=== PATIENT | male | born 1990 | race Caucasian/White ===

== ENCOUNTER 2017-03-21 12:11 | Emergency (ER) | payer OTHER ==
[2017-03-21 12:18] VITALS: BP 152/105; PULSE 72; RESP 16; TEMP 97.9; O2SAT 95
--- NOTE | 2017-03-21 13:51 | EDPHY ---
H & P Time Seen by Provider: 03/21/17 13:20 HPI/ROS: CHIEF COMPLAINT: Acute right knee pain HISTORY OF PRESENT ILLNESS: 26-year-old male arrives via private vehicle complaining of acute right medial knee pain after he was walking down a stair and the stair broke he fell through the stair impacting his right medial knee. Complaint acute right medial knee pain which occurred earlier today. He is able to bear weight. Reproducible pain with palpation range of motion. No gross instability. PRIMARY CARE PROVIDER: REVIEW OF SYSTEMS: A ten point review of systems was performed and is negative with the exception of the items mentioned in the HPI PHYSICAL EXAM (Prior to examination, patient consented to physical exam, hands were washed and my usual and customary physical exam procedures followed) 1) GENERAL: Well-developed, well-nourished, alert and oriented. Appears to be in no acute distress. 2) HEAD: Normocephalic 3) HEENT: Pupils equal, round, reactive to light bilaterally. 4) LUNGS: Breathing comfortably. 5) MUSCULOSKELETAL: Exam of the right knee shows no visible signs of trauma. Intact skin. No laceration. No abrasion. He is tender to palpation medial aspect. Also has reproducible pain with range of motion. . Compartments are soft. 6) SKIN: intact 7) VASCULAR: DP,PT pulses and cap refill present and brisk distally DIFFERENTIAL DIAGNOSIS: in no particular order including but not limited to fracture, sprain, compartment syndrome, septic arthritis, DVT Procedure: Crutches indications for crutch use discussed with patient. Patient fitted for crutches by ER staff. Observed ambulating with crutches. I think the patient has the capacity to safely use crutches. Usual and customary crutch walking precautions provided Procedure: Splint An Radames bandage splint was applied by ER microbiology technician as the patient did not fit in a knee immobilizer. After application of the splint I returned and re- examined the patient. The splint was adequately immobilizing the joint and distal to the splint the patient's circulation and sensation were intact. Patient shows no signs of compartment syndrome. Was given orthopedic precautions. MEDICAL DECISION MAKING Serial evaluations performed on patient. I discussed the limitations of x-ray in diagnosis of knee pain and injury. At this time I do not think that emergent MRI is currently indicated. However, I have recommended follow-up with Orthopedic surgery and provided this referral information. Informed the patient that outpatient MRI may be indicated. Doubt septic arthritis. Doubt compartment syndrome. Doubt DVT. Smoking Status: Former smoker Constitutional: Initial Vital Signs Temperature (C) 36.6 C 03/21/17 12:16 Heart Rate 72 03/21/17 12:16 Respiratory Rate 16 03/21/17 12:16 Blood Pressure 152/105 H 03/21/17 12:16 O2 Sat (%) 95 03/21/17 12:16 O2 Delivery Mode Room Air Allergies/Adverse Reactions: No Known Allergies Allergy (Verified 03/21/17 12:16) Home Medications: Medication Instructions Recorded NK [No Known Home Meds] 03/21/17 MDM/Departure - MDM Imaging Results: Imaging Impressions Knee X-Ray 03/21/17 12:19 Impression: There is no acute osseous abnormality. Images reviewed by myself - Depart Disposition: Home, Routine, Self-Care Clinical Impression: Right medial knee pain Condition: Good Instructions: Knee Sprain (ED) Additional Instructions: Return to the ER immediately if you experience discoloration, have worsening pain, numbness, tingling, or any other symptoms that concern you. If you received x-rays in the emergency department today, be advised, that ligamentous , tendon, muscular, and other non-bony injury cannot be fully ruled out. Try to keep your affected extremity elevated above the level of your chest, and keep cold packs on the affected area, for the next 48 hours. Referrals: Sari Wilson MD [Medical Doctor] - 2-3 days, call for appt. (Dr. Wilson is orthopedic surgeon)
== END 2017-03-21 14:10 | disposition home or self-care (01) ==
DX: S89.91XA Unspecified injury of right lower leg, initial encounter (principal); Z87.891 Personal history of nicotine dependence; W10.9XXA Fall (on) (from) unspecified stairs and steps, initial encounter